=== PATIENT | female | born 1965 | race African-American/Black ===

== ENCOUNTER 2017-09-15 20:49 | Emergency (ER) | payer OTHER ==
[~2017-09-15] VITALS: Ht 167.6 cm; Wt 81.6 kg
[2017-09-15 20:50] VITALS: BP 158/113
--- NOTE | 2017-09-15 21:27 | NUR ---
TO ER BED 3
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
--- NOTE | 2017-09-15 22:00 | NUR ---
VSS. SR ON . PT RESTING WITHOUT ANY DISTRESS. WILL CONTINUE TO MONITOR.
--- NOTE | 2017-09-15 22:40 | NUR ---
DR. MILNER EVALUATING PT.
[2017-09-15 22:45] VITALS: BP 160/107
--- NOTE | 2017-09-15 22:45 | NUR ---
Patient discharged with v/s stable. Written and verbal after care instructions given and explained. Patient verbalized understanding. Ambulatory with steady gait. All questions addressed prior to discharge. Advised to follow up with PMD.
== END 2017-09-15 22:45 | disposition home or self-care (01) ==
LOC: MED 20:49
DX: R07.89 Other chest pain (principal)
CPT/HCPCS: 81002; 81025; 93005; 99283

== ENCOUNTER 2019-05-27 02:07 | Inpatient (IN) | payer MEDICAID, OTHER ==
[~2019-05-27] VITALS: Ht 170.2 cm; Wt 85.7 kg
[2019-05-27 02:27] VITALS: BP 192/124
--- NOTE | 2019-05-27 02:45 | NUR ---
54 YEAR OLD FEMALE COMPLAINS OF 10/10 ABDOMINAL PAIN X 6 HOURS. PATIENT STATES THAT THE PAIN STARTED AFTER SHE HAD [place] LOC[facility]. PATIENT STATES NAUSEA AND VOMITTING. BOWEL SOUNDS ACTIVE X4, TENDER. BP 206/117, HR 89, SPO2 98%, RR 18. PATIENT DENIES DIZZINESS, CHEST PAIN, HEADACHES. PATIENT ALERT AND ORIENTED, BREATHING EVEN AND UNLABORED, SKIN WARM AND DRY. BED IN LOWEST POSITION, LOCKED, BED RAIL UPX1. PMH - DENIES MEDICATIONS - NONE ALLERGIES - NONE
--- NOTE | 2019-05-27 02:52 | NUR ---
DR BHAKTA AWARE OF VITAL SIGNS
--- NOTE | 2019-05-27 03:27 | NUR ---
DR BHAKTA AT BEDSIDE
[2019-05-27] MEDS ORDERED: DICYCLOMINE HCL LIQUID 20 MG, ALUMINUM HYD/MAG/SIMETHICONE 30 ML, LIDOCAINE VISCOUS 2% ... PO ONE ×3 (03:30)
[2019-05-27] MEDS ORDERED: ONDANSETRON 4 MG ODT PO ONE (03:30)
[2019-05-27] MEDS ORDERED: MORPHINE SULFATE 4 MG/ML SYR IM ONE (03:30)
[2019-05-27] MEDS ORDERED: LIDOCAINE VISCOUS 2% 20 ML UDC ONE (03:34)
[2019-05-27] MEDS ORDERED: ALUMINUM HYD/MAG/SIMETHICONE 30 ML UDC ONE (03:35)
[2019-05-27] MEDS ORDERED: DICYCLOMINE HCL LIQUID 10 MG/5 ML UDC ONE (03:35)
--- NOTE | 2019-05-27 04:38 | NUR ---
PATIENT ALERT AND ORIENTED, BREATHING EVEN AND UNLABORED
--- NOTE | 2019-05-27 04:38 | NUR ---
PATIENT O2 SATURATION DROPPED TO 88%, PLACED ON 2L NC
--- NOTE | 2019-05-27 04:39 | NUR ---
O2 SATURATION NOW 98%
[2019-05-27 04:43] LABS: BASOPHILS # (AUTO) 0.1 K/uL (0.00-0.22); MEAN CORPUSCULAR HGB CONC 33 g/dL (33-37); MONOCYTES # (AUTO) 0.3 K/uL (0.8-1.0); RED BLOOD CELL COUNT(AUTO) 4.04 MIL/uL (4.20-5.40); WHITE BLOOD COUNT (AUTO) 12.5 K/uL (4.8-10.8)
[2019-05-27 04:54] LABS: BASOPHILS % (AUTO) 0.4 % (0.0-2.0); EOSINOPHILS % (AUTO) 0.1 % (0.0-4.0); HEMATOCRIT 41.9 % (36-48); LYMPHOCYTES # (AUTO) 0.9 K/uL (2.5-16.5); MEAN CORPUSCULAR HEMOGLOBIN 35 pg (27-31); MEAN CORPUSCULAR VOLUME 103.7 fL (80-94); MONOCYTES % (AUTO) 2.6 % (1.7-9.3); NEUTROPHILS # (AUTO) 11.2 K/uL (1.8-7.7); NEUTROPHILS % (AUTO) 89.5 % (42.2-75.2); PLATELET COUNT (AUTO) 297 K/uL (140-450)
--- NOTE | 2019-05-27 05:02 | NUR ---
DR BHAKTA AWARE OF BLOOD PRESSURE
--- NOTE | 2019-05-27 05:30 | NUR ---
PATIENT ALERT AND ORIENTED, BREATHING EVEN AND UNLABORED
--- NOTE | 2019-05-27 06:07 | NUR ---
BP 184/117, DR BHAKTA AWARE
[2019-05-27 06:14] LABS: ANION GAP 17.8 (8-16); CARBON DIOXIDE 22.7 mmol/L (21-32); CREATININE 0.8 mg/dL (0.6-1.3); POTASSIUM 3.5 mmol/L (3.5-5.1); TOTAL BILIRUBIN 0.7 mg/dL (0.0-1.0)
--- NOTE | 2019-05-27 06:33 | NUR ---
PATIENT ALERT AND ORIENTED, BREATHING EVEN AND UNLABORED
[2019-05-27 06:43] LABS: LYMPHOCYTES % (AUTO) 7.4 % (20.5-51.1)
[2019-05-27 06:51] LABS: BENZODIAZEPINE, URINE NEG. ng/mL (NEG <=200); CANNABINOID, URINE NEG. ng/mL (NEG <=50); COCAINE, URINE NEG. ng/mL (NEG <=300); OPIATE, URINE POS. ng/mL (NEG <=2000); PHENCYCLIDINE SCREEN,URINE NEG. ng/mL (NEG <=25)
[2019-05-27 07:00] LABS: BARBITURATE, URINE NEG. ng/ml (NEG <=200)
--- NOTE | 2019-05-27 07:11 | NUR ---
PT RETURN FROM CT
--- NOTE | 2019-05-27 07:45 | NUR ---
pt awake alert laying on right side ---she is aware we are waiting for ct read offered pt water , pt declined at this time but thank me
[2019-05-27] MEDS ORDERED: PIPERACILLIN/TAZOBACTAM 3.375 GM in DEXTROSE 5% 50 ML IV ONE (08:25)
[2019-05-27] MEDS ORDERED: NACL 0.9% 1,000 ML IV SCH (08:38)
[2019-05-27] MEDS ORDERED: ONDANSETRON 4 MG/2 ML VIAL IM/IVP PRN (08:40)
[2019-05-27] MEDS ORDERED: ACETAMINOPHEN 325 MG TAB PO PRN (08:40)
[2019-05-27] MEDS ORDERED: HYDROcodone/APAP 7.5/325 MG 1 TAB PO PRN (08:40)
--- NOTE | 2019-05-27 08:40 | NUR ---
megan from lab notified of new order for urine by lab and type and screen stat entered
[2019-05-27] MEDS ORDERED: PIPERACILLIN/TAZOBACTAM 3.375 GM VIAL IV ONE (09:02)
--- NOTE | 2019-05-27 09:30 | NUR ---
RECEIVED PT FROM ED NURSE JAVIER. PT RESTING IN BED. ABLE TO MAKE NEEDS KNOWN. SKIN WARM AND DRY TO TOUCH. RESPIRATIONS EVEN AND UNLABORED WITH NO SOB OR RESPIRATORY DISTRESS. PT ASSISTED INTO BED WITHOUT COMPLICATIONS. PT CHANGED INTO BLUE GOWN AND NONSLIP SOCKS. ID BAND APPLIED. IV SITE IN LEFT WRITES 20G IS CLEAN, DRY, AND INTACT. MRSA SWAB PERFORMED AND SENT TO LAB. VITAL SIGNS UPON ADMISSION: 147/95 BP, 115HR, 97% SPO2 ON RA, 97.8 T, AND 18 RR. SAFETY MEASURES IN PLACE. WILL CONTINUE TO MONITOR
--- NOTE | 2019-05-27 09:42 | NUR ---
Pt transferred to Tele via [email or web address] report given to jenny ruano--
[2019-05-27 11:03] VITALS: BP 147/95
[2019-05-27] MEDS: LACTOBACILLUS RHAMNOSUS GG 1 EACH CAP PO SCH (11:05)
[2019-05-27] MEDS: MORPHINE SULFATE 2 MG/ML SYR IVP PRN ×2 (11:07→23:17)
--- NOTE | 2019-05-27 11:07 | NUR ---
PT CALLED AND COMPLAINED OF SEVERE PAIN. PRN PAIN MEDICATION ADMINISTERED PRESCRIBED PER MD ORDER. PT TOLERATED WELL. MEDICATION EDUCATION PERFORMED. PT VERBALIZED UNDERSTANDING. SAFETY MEASURES IN PLACE. WILL CONTINUE TO MONITOR.
[2019-05-27 11:21] LABS: APPEARANCE,URINE HAZY (CLEAR); BILIRUBIN,URINE NEGATIVE (NEGATIVE); BLOOD, URINE TRACE-I (NEGATIVE); COLOR,URINE YELLOW (YELLOW); LEUKOCYTE ESTERASE ,URINE 3+ (NEGATIVE); NITRITE, URINE POSITIVE (NEGATIVE); PH,URINE 6.5 (5.0-9.0); UGLUCOSE NEGATIVE (NEGATIVE)
[2019-05-27 11:33] LABS: RBC,URINE 0-5 /HPF (0-5); WBC,URINE 20-60 /HPF (0-5)
[2019-05-27 11:37] LABS: PROTHROMBIN TIME 9.8 secs (10.8-13.4)
[2019-05-27 12:00] VITALS: BP 143/95
[2019-05-27] MEDS: PIPERACILLIN/TAZOBACTAM 3.375 GM in DEXTROSE 5% 50 ML IV SCH ×2 (12:34→20:44)
--- NOTE | 2019-05-27 12:44 | NUR ---
ADMINISTERED SCHEDULE MED PRESCRIBED PER MD ORDER. PT TOLERATED WELL. MEDICATION EDUCATION PERFORMED. PT VERBALIZED UNDERSTANDING. SAFETY MEASURES IN PLACE. WILL CONTINUE TO MONITOR.
--- NOTE | 2019-05-27 14:15 | NUR ---
PT RESTING IN BED WITH FAMILY AT BEDSIDE. ABLE TO MAKE NEEDS KNOWN. RESPIRATIONS EVEN AND UNLABORED WITH NO SOB OR RESPIRATORY DISTRESS. SKIN WARM AND DRY TO TOUCH. SAFETY MEASURES IN PLACE. WILL CONTINUE TO MONITOR.
[2019-05-27 16:00] VITALS: BP 128/64
--- NOTE | 2019-05-27 16:30 | NUR ---
PT RESTING IN BED. ABLE TO MAKE NEEDS KNOWN. RESPIRATIONS EVEN AND UNLABORED WITH NO SOB OR RESPIRATORY DISTRESS. SKIN WARM AND DRY TO TOUCH. SAFETY MEASURES IN PLACE. WILL CONTINUE TO MONITOR
--- NOTE | 2019-05-27 18:15 | NUR ---
PT ASLEEP IN BED. RESPONSIVE TO VERBAL AND TACTILE STIMULI. ABLE TO MAKE NEEDS KNOWN. RESPIRATIONS EVEN AND UNLABORED WITH NO SOB OR RESPIRATORY DISTRESS. SKIN WARM AND DRY TO TOUCH. SAFETY MEASURES IN PLACE. WILL CONTINUE TO MONITOR
--- NOTE | 2019-05-27 19:11 | NUR ---
REPORT RECEIVED FROM ED NURSE AT BEDSIDE. PT IN STABLE CONDITION. AAOX4. INTRODUCED SELF TO PT. BOARD UPDATED. PT HAS NO COMPLAINTS OF PAIN. NO SOB. AFEBRILE. PT IS AMBULATORY. IV SITE L WRIST 20G RUNNING NS@60ML/HR PATENT AND INTACT. SKIN WARM, DRY, AND INTACT WITH NO OPEN WOUNDS. BED LOCKED IN LOW POSITION. CALL ZEPEDA WITHIN REACH. SAFETY PRECAUTION IN PLACE. ALL NEEDS MET AT THIS TIME.
[2019-05-27 20:00] VITALS: BP 153/104
[2019-05-27] MEDS: METOPROLOL 50 MG TAB PO SCH (20:44)
--- NOTE | 2019-05-27 20:44 | NUR ---
LOPRESSOR GIVEN PO. ZOSYN HUNG AND RUNNING. PT TOLERATING WELL.
[2019-05-27] MEDS ORDERED: NEOSTIGMINE 1:1000 10 MG/10 ML VIAL ONE (20:53)
[2019-05-27] MEDS ORDERED: LIDOCAINE 2% 100 MG/5 ML SYR IVP ONE (20:53)
[2019-05-27] MEDS ORDERED: SEVOFLURANE 250 ML BTL INH ONE (20:53)
[2019-05-27] MEDS ORDERED: SUCCINYLCHOLINE CHLORIDE 200 MG/10 ML VIAL IVP ONE (20:53)
[2019-05-27] MEDS ORDERED: PROPOFOL 200 MG/20 ML VIAL IV ONE (20:53)
[2019-05-27] MEDS ORDERED: KETOROLAC 30 MG/ML VIAL ONE (20:53)
[2019-05-27] MEDS ORDERED: ROCURONIUM 50 MG/5 ML VIAL IV ONE (20:53)
[2019-05-27] MEDS ORDERED: DEXAMETHASONE 4 MG/ML VIAL ONE (20:53)
[2019-05-27] MEDS ORDERED: ONDANSETRON 4 MG/2 ML VIAL ONE (20:53)
[2019-05-27] MEDS ORDERED: GLYCOPYRROLATE 0.2 MG/ML VIAL ONE (20:53)
--- NOTE | 2019-05-27 21:00 | NUR ---
PT TAKEN TO OR FOR LAP APPENDECTOMY.
[2019-05-27] MEDS ORDERED: BUPIVACAINE-MPF/EPI 0.25% 30 ML VIAL INJ ONE (21:02)
[2019-05-27 21:10] LABS: MAGNESIUM 1.5 mg/dL (1.8-2.4)
[2019-05-27 21:35] LABS: FREE T4 (FREE THYROXINE) 0.92 ng/dL (0.76-1.46); PHOSPHORUS 4.5 mg/dL (2.5-4.9); THYROID STIMULATING HORMONE 3.66 uIU/mL (0.34-3.74)
[2019-05-27] MEDS ORDERED: ONDANSETRON 4 MG/2 ML VIAL IVP PRN (21:40)
[2019-05-27] MEDS: HYDROmorphone 1 MG/ML AMP IVP PRN ×4 (22:15→22:45)
[2019-05-27] MEDS ORDERED: HYDROmorphone PFS 2 MG/ML SYR ONE (22:17)
[2019-05-27] MEDS ORDERED: LABETALOL 100 MG/20 ML VIAL IVP PRN (22:25)
[2019-05-27] MEDS ORDERED: LABETALOL 100 MG/20 ML VIAL ONE (22:26)
--- NOTE | 2019-05-27 22:45 | NUR ---
PT RETURNED FROM OR AFTER LAP APPENDECTOMY.
--- NOTE | 2019-05-27 23:17 | NUR ---
MORPHINE GIVEN FOR 10/10 ABDOMINAL PAIN. PT TOLERATED WELL.
[2019-05-27] MEDS: DEXT 5% / NACL 0.45% 1,000 ML IV SCH (23:30)
[2019-05-28] VITALS: BP 111/70
--- NOTE | 2019-05-28 01:45 | NUR ---
PT SLEEPING COMFORTABLY BUT AROUSABLE. NO S/S OF DISTRESS NOTED. WILL CONTINUE TO MONITOR.
[2019-05-28 04:00] VITALS: BP 118/85
[2019-05-28] MEDS: MORPHINE SULFATE 2 MG/ML SYR IVP PRN ×5 (04:27→20:51)
[2019-05-28] MEDS: PIPERACILLIN/TAZOBACTAM 3.375 GM in DEXTROSE 5% 50 ML IV SCH ×3 (04:27→20:44)
--- NOTE | 2019-05-28 04:27 | NUR ---
LUCY VENEGAS AND GABY. PT TOLERATING WELL. Addendum: 05/28/19 at 0531 by Hong Javier RN MORPHINE GIVEN FOR 01/28 ABDOMINAL PAIN. PT TOLERATED WELL.
--- NOTE | 2019-05-28 05:30 | NUR ---
PT SLEEPING COMFORTABLY BUT AROUSABLE. NO S/S OF DISTRESS NOTED. NO COMPLAINTS OF PAIN. NO SOB. AFEBRILE. WILL CONTINUE TO MONITOR.
--- NOTE | 2019-05-28 06:50 | NUR ---
PT SLEEPING COMFORTABLY BUT AROUSABLE. PT IN STABLE CONDITION.
--- NOTE | 2019-05-28 07:10 | NUR ---
RECEIVED BEDSIDE REPORT FROM NIGHTSHIFT NURSE. PT RESTING IN BED UPON ARRIVAL. ABLE TO MAKE NEEDS KNOWN. RESPIRATIONS EVEN AND UNLABORED WITH NO SOB OR RESPIRATORY DISTRESS. SKIN WARM AND DRY TO TOUCH. SAFETY MEASURES IN PLACE. WILL CONTINUE TO MONITOR
[2019-05-28 07:35] LABS: BASOPHILS % (AUTO) 0.1 % (0.0-2.0); HEMATOCRIT 35.8 % (36-48); HEMOGLOBIN 11.8 g/dL (12.0-16.0); LYMPHOCYTES # (AUTO) 0.5 K/uL (2.5-16.5); LYMPHOCYTES % (AUTO) 5.5 % (20.5-51.1); MEAN CORPUSCULAR HEMOGLOBIN 35 pg (27-31); MEAN CORPUSCULAR HGB CONC 33 g/dL (33-37); MEAN CORPUSCULAR VOLUME 105.3 fL (80-94); MONOCYTES # (AUTO) 0.3 K/uL (0.8-1.0); MONOCYTES % (AUTO) 2.9 % (1.7-9.3); NEUTROPHILS # (AUTO) 9.1 K/uL (1.8-7.7); NEUTROPHILS % (AUTO) 91.5 % (42.2-75.2); PLATELET COUNT (AUTO) 240 K/uL (140-450); RED CELL DISTRIBUTION WIDTH 13.1 % (11.6-13.7); WHITE BLOOD COUNT (AUTO) 9.9 K/uL (4.8-10.8)
[2019-05-28 08:00] VITALS: BP 138/92
[2019-05-28] MEDS ORDERED: MAG SULF 2000 MG/WATER PREMIX 50 ML IV ONE (08:00)
--- NOTE | 2019-05-28 08:01 | NUR ---
ADMINISTERED MED PRESCRIBED PER MD ORDER. PT TOLERATED WELL. MEDICATION EDUCATION PERFORMED. PT VERBALIZED UNDERSTANDING. SAFETY MEASURES IN PLACE.
--- NOTE | 2019-05-28 08:15 | NUR ---
PATIENT HAS BEEN SCREENED AND CATEGORIZED HIGH NUTRITION RISK. PATIENT WILL BE SEEN WITHIN 1-2 DAYS OF ADMISSION. 05/28/[address]
[2019-05-28 08:57] LABS: ANION GAP 13.5 (8-16); CARBON DIOXIDE 27.7 mmol/L (21-32); CREATININE 1.1 mg/dL (0.6-1.3); POTASSIUM 4.2 mmol/L (3.5-5.1)
[2019-05-28] MEDS: METOPROLOL 50 MG TAB PO SCH ×2 (09:21→21:00)
[2019-05-28] MEDS: LACTOBACILLUS RHAMNOSUS GG 1 EACH CAP PO SCH (09:21)
[2019-05-28] MEDS: DEXT 5% / NACL 0.45% 1,000 ML IV SCH (09:22)
--- NOTE | 2019-05-28 09:22 | NUR ---
ADMINISTERED MEDICATION PRESCRIBED PER MD ORDER. PT ALSO COMPLAINED OF SEVERE PAIN. PRN PAIN MEDICATION ADMINISTERED PRESCRIBED PER MD ORDER. PT TOLERATED WELL. MEDIATION EDUCATION PERFORMED. PT VERBALIZED UNDERSTANDING. SAFETY MEASURES IN PLACE. WILL CONTINUE TO MONITOR
[2019-05-28] MEDS ORDERED: MULTIVITAMIN 1 TAB PO SCH (10:00)
--- NOTE | 2019-05-28 10:07 | NUR ---
ADMINISTERED MEDICATION PRESCRIBED PER MD ORDER. PT TOLERATED WELL. MEDICATION EDUCATION PREFORMED. PT VERBALIZED UNDERSTANDING. SAFETY MEASURES IN PLACE
[2019-05-28 10:29] LABS: CHOL/HDL RATIO 1.8 (1-4.5)
--- NOTE | 2019-05-28 10:50 | NUR ---
ABDOMINAL S/P LAPRA SCOPIC SURGICAL WOUND, DERMA DOWNS IN PLACE, 3 INCISION SITES DRY AND CLEAN,NO S/S OF INFECTION ISLAND DRESSING APPLIED, PT. AND PRIMARY RN NOTIFIED TO KEEP AREA DRY AND CLEAN. PT. AAX4 AND VERBALIZES UNDERSTANDING.
--- NOTE | 2019-05-28 11:00 | NUR ---
PT RESTING IN BED WITH FAMILY AT BEDSIDE. ABLE TO MAKE NEEDS KNOWN. RESPIRATIONS EVEN AND UNLABORED WITH NO SOB OR RESPIRATORY DISTRESS. SKIN WARM AND DRY TO TOUCH. IV SITE IN LEFT WRIST 20G IS CLEAN, DRY, AND INTACT. SAFETY MEASURES IN PLACE. WILL CONTINUE TO MONITOR.
[2019-05-28 12:00] VITALS: BP 106/73
--- NOTE | 2019-05-28 12:22 | NUR ---
HOURLY ROUNDING. PT RESTING IN BED. ABLE TO MAKE NEEDS KNOWN. RESPIRATIONS EVEN AND UNLABORED WITH NO SOB OR RESPIRATORY DISTRESS. SKIN WARM AND DRY TO TOUCH. SAFETY MEASURES IN PLACE. WILL CONTINUE TO MONITOR.
--- NOTE | 2019-05-28 13:09 | NUR ---
ADMINISTERED SCHEDULE MED PRESCRIBED PER MD ORDER. PT TOLERATED WELL. PT CALLED AND COMPLAINED OF SEVERE PAIN. PRN PAIN MEDICATION ADMINISTERED PRESCRIBED PER MD ORDER. MEDICATION EDUCATION PERFORMED. PT VERBALIZED UNDERSTANDING. SAFETY MEASURES IN PLACE. WILL CONTINUE TO MONITOR.
--- NOTE | 2019-05-28 14:05 | NUR ---
HOURLY ROUNDING. PT ASLEEP IN BED. RESPONSIVE TO VERBAL AND TACTILE STIMULI. RESPIRATIONS EVEN AND UNLABORED WITH NO SOB OR RESPIRATORY DISTRESS. SKIN WARM AND DRY TO TOUCH. SAFETY MEASURES IN PLACE. WILL CONTINUE TO MONITOR.
--- NOTE | 2019-05-28 14:08 | NUR ---
Data Integrity Consultant Note: Basic Screen: Yes High Risk DC Screen [place]: ARISTEO MURPHY Home Relationship: MOTHER Pre-Admission Living Arrangements: Lives with Other Prior ADL Independent Current Home Health Name/Tel: N/A Current DME/02 Name/Tel: N/A Current Hospice Name/Tel: N/A Current Dialysis Name/Tel: N/A Healthcare Decision Maker: Patient Advance Directive No - REFUSED Physician Orders for Life Sustaining Treatment Form No Patient/Family Have Educational Needs No Information Taught: Advance Directive Person Taught: Patient Teaching Tools: Verbal Factors Affecting Learning: None Participation Level: Refused Evaluation: Verbalizes Understanding Needs Additional Education: No Discipline: Case Mgt/Social Svcs Tentative Discharge Plan/Destination: No Needs Identified Will require assistance post discharge: No Referred to Fish Worm Grower: No Tentative Discharge Plan Summary: Patient is a 54-year-old female admitted for acute appendicitis. Patient has PMHX of hypertension. Patient was admitted from home. SW met with patient at bedside to verify demographics. Patient provided a different address than on face sheet. Patient now resides at: [address] [place] [address] [address] [place] [address]. Patient stated she lives with her son. Patient also provided different contact information for emergency contact: Aristeo Murphy [phone]. Patient reports no history of mental health and no history of substance abuse. Patient's tentative plan after discharge is to return home. No further needs identified. Signature: JODIE Vital Date: May 28, 2019 Time: 14:07
--- NOTE | 2019-05-28 15:31 | NUR ---
05/28/19 RD INITIAL ASSESSMENT COMPLETED PLEASE REFER TO NUTRITION ASSESSMENT UNDER CARE ACTIVITY FOR ESTIMATED NUTRITIONAL NEEDS. 1. CONTINUE CLEAR LIQUID DIET TOLERATED 2. IF/WHEN PATIENT IS MEDICALLY STABLE CONSIDER ADVANCING DIET TO 2GM NA. 3. CONTINUE MVI/VIT C FOR WOUND HEALING 4. RD TO FOLLOW-UP 3-5 DAYS, MODERATE RISK TANMAY WHITTAKER RD
[2019-05-28 16:00] VITALS: BP 103/70
--- NOTE | 2019-05-28 17:55 | NUR ---
PT CALLED AND COMPLAINED OF PAIN. PRN PAIN MEDICATION ADMINISTERED PRESCRIBED PER MD ORDER. SAFETY MEASURES IN PLACE.
--- NOTE | 2019-05-28 19:20 | NUR ---
ENDORSED TO NIGHTSHIFT NURSE. PT RESTING IN BED. ABLE TO MAKE NEEDS KNOWN. RESPIRATIONS EVEN AND UNLABORED WITH NO SOB OR RESPIRATORY DISTRESS. SKIN WARM AND DRY TO TOUCH. SAFETY MEASURES IN PLACE. PT IS STABLE.
--- NOTE | 2019-05-28 19:21 | NUR ---
REPORT RECEIVED FROM AM NURSE AT BEDSIDE. PT IN STABLE CONDITION. AAOX4. INTRODUCED SELF TO PT. BOARD UPDATED. NO COMPLAINTS OF PAIN. NO SOB. AFEBRILE. PT IS AMBULATORY. IV SITE L WRIST 20G RUNNING D5 1/2NS@70ML/HR PATENT AND INTACT. SKIN WARM, DRY, AND NOT INTACT DUE TO LAPAROSCOPIC WOUNDS IN THE ABDOMEN DUE TO S/P APPENDECTOMY. BED LOCKED IN LOW POSITION. CALL ZEPEDA WITHIN REACH. SAFETY PRECAUTION IN PLACE. ALL NEEDS MET AT THIS TIME.
--- NOTE | 2019-05-28 20:51 | NUR ---
LUCY VENEGAS AND GABY. MORPHINE GIVEN FOR 12/28 ABDOMINAL PAIN. PT TOLERATED WELL. Addendum: 05/29/19 at 0230 by Hong Javier RN LOPRESSOR HELD DUE TO DECREASED BP.
--- NOTE | 2019-05-28 21:55 | NUR ---
PT IN BED WATCHING TV. NO S/S OF DISTRESS NOTED. WILL CONTINUE TO MONITOR.
[2019-05-29] VITALS: BP 110/76
[2019-05-29] MEDS: MORPHINE SULFATE 2 MG/ML SYR IVP PRN ×3 (00:34→22:23)
--- NOTE | 2019-05-29 00:34 | NUR ---
MORPHINE GIVEN FOR 8/10 SURGICAL SITE PAIN. PT TOLERATED WELL.
--- NOTE | 2019-05-29 02:25 | NUR ---
PT SLEEPING COMFORTABLY BUT AROUSABLE. NO S/S OF DISTRESS NOTED. RESPIRATIONS EVEN, UNLABORED, AND WNL. WILL CONTINUE TO MONITOR.
[2019-05-29] MEDS: DEXT 5% / NACL 0.45% 1,000 ML IV SCH ×2 (03:50→13:30)
[2019-05-29] MEDS: PIPERACILLIN/TAZOBACTAM 3.375 GM in DEXTROSE 5% 50 ML IV SCH ×3 (04:08→21:15)
--- NOTE | 2019-05-29 04:08 | NUR ---
LUCY HUNG AND RUNNING. PT TOLERATING WELL.
--- NOTE | 2019-05-29 04:22 | NUR ---
MORPHINE GIVEN FOR 9/10 SURGICAL SITE PAIN. PT TOLERATED WELL.
[2019-05-29 06:14] LABS: BASOPHILS % (AUTO) 0.4 % (0.0-2.0); EOSINOPHILS % (AUTO) 0.2 % (0.0-4.0); HEMATOCRIT 34.1 % (36-48); HEMOGLOBIN 11.2 g/dL (12.0-16.0); LYMPHOCYTES % (AUTO) 23.4 % (20.5-51.1); MEAN CORPUSCULAR HEMOGLOBIN 35 pg (27-31); MEAN CORPUSCULAR HGB CONC 33 g/dL (33-37); MEAN CORPUSCULAR VOLUME 105.7 fL (80-94); MONOCYTES # (AUTO) 0.8 K/uL (0.8-1.0); MONOCYTES % (AUTO) 9.1 % (1.7-9.3); NEUTROPHILS # (AUTO) 5.8 K/uL (1.8-7.7); NEUTROPHILS % (AUTO) 66.9 % (42.2-75.2); PLATELET COUNT (AUTO) 234 K/uL (140-450); RED BLOOD CELL COUNT(AUTO) 3.23 MIL/uL (4.20-5.40); RED CELL DISTRIBUTION WIDTH 13.2 % (11.6-13.7); WHITE BLOOD COUNT (AUTO) 8.7 K/uL (4.8-10.8)
--- NOTE | 2019-05-29 06:30 | NUR ---
PT AWAKE AND ALERT WATCHING TV. PT IN STABLE CONDITION.
[2019-05-29 06:56] LABS: ANION GAP 10.6 (8-16); CARBON DIOXIDE 27.5 mmol/L (21-32); CREATININE 1.1 mg/dL (0.6-1.3); POTASSIUM 3.1 mmol/L (3.5-5.1)
[2019-05-29 07:15] LABS: MAGNESIUM 1.7 mg/dL (1.8-2.4); PHOSPHORUS 3.6 mg/dL (2.5-4.9)
--- NOTE | 2019-05-29 07:24 | NUR ---
REPORT RECEIVED FROM STATISTICAL REPORTING ANALYST NURSE FOR CONTINUITY OF CARE. PATIENT IS RESTING IN BED, SLEEPING, OBSERVED CHEST RISE AND FALL. WILL CONTINUE TO MONITOR.
[2019-05-29 08:00] VITALS: BP 86/50
[2019-05-29] MEDS: LACTOBACILLUS RHAMNOSUS GG 1 EACH CAP PO SCH (08:48)
[2019-05-29] MEDS: METOPROLOL 50 MG TAB PO SCH ×2 (08:49→21:00)
[2019-05-29] MEDS: POTASSIUM CHLORIDE 10 MEQ TABER PO SCH ×2 (08:50→21:15)
[2019-05-29] MEDS ORDERED: MORPHINE SULFATE 2 MG/ML SYR IVP SCH (09:00)
[2019-05-29] MEDS ORDERED: KETOROLAC 15 MG/ML VIAL IVP SCH (09:00)
[2019-05-29] MEDS ORDERED: MAG SULF 2000 MG/WATER PREMIX 50 ML IV SCH (09:00)
[2019-05-29] MEDS: MULTIVITAMIN 1 TAB PO SCH (09:08)
--- NOTE | 2019-05-29 10:00 | NUR ---
PATIENT IS RESTING IN BED, PATIENT REPORTS PAIN ON LEFT ABDOMINAL SURGICAL SCAR, PAIN MEDICATIONS GIVEN, TOLERATED WELL. BED IN LOW POSITION, CALL LIGHT ON AND WITHIN REACH. WILL CONTINUE TO MONITOR.
--- NOTE | 2019-05-29 12:30 | NUR ---
PATIENT IS RESTING IN BED, CALL LIGHT ON AND WITHIN REACH, BED IN LOW POSITION, WILL CONTINUE TO MONITOR.
--- NOTE | 2019-05-29 14:31 | NUR ---
DC PLANNIN YRS OLD FEMALE PATIENT WAS ADMITTED FROM HOME WITH A DX OF ACUTE APPENDICITIS. PT HAS A HX OF HTN . CT ABD/PELVIS SHOWED MILD APPENDICITIS. ADMINISTERED ZOSYN IV ABX . CONSULTED WITH DR SOTO AND PERFORMED LAP APPY DC HOME WHEN CATARINA Taylor AND FOLLOW UP WITH DR SOTO WITH IN ONE WEEK CM TO FOLLOW. Addendum: 05/30/19 at 1220 by Dior Harrison DC PLANNING: PT STABLE TO BE DISCHARGE , FOLLOW UP WITH DR SOTO SURGEON AT HIS OFFICE WITH IN 3 DAYS . PT INSTRUCTED TO CALL DR SOTO'S OFFICE BY PRIMARY NURSE [place].
[2019-05-29 16:00] VITALS: BP 105/73
--- NOTE | 2019-05-29 19:15 | NUR ---
RECEIVED PT IN STABLE CONDITION FROM AM NURSE. AWAKE,ALERT AND ORIENTED X4. MED SURG PT. AMBULATORY. WITH NO C/O ANY DISCOMFORT NOR PAIN AT THIS TIME. ABDOMEN INCISIONS OPEN TO AIR. IVF INFUSING WEL ON THE FA G#20. CLEAR AND PATENT. PLAN OF CARE DISCUSSED AND VERBALIZED UNDERSTANDING. BED ON LOW POSITION. SIDE RAILS UP X2. CALL LIGHT PLACED WITHIN EASY REACH. WILL CONTINUE TO MONITOR.
--- NOTE | 2019-05-29 19:25 | NUR ---
PATIENT REPORT GIVEN TO BACK TENDER FOURDRINIER NURSE FOR CONTINUATION OF CARE.
[2019-05-29 21:00] VITALS: BP 125/88
--- NOTE | 2019-05-29 21:00 | NUR ---
PT REFUSED TO TAKE LOPRESSOR PO DUE TONIGHT DUE TO BP GETTING LOW.
--- NOTE | 2019-05-29 21:50 | NUR ---
PT CONCERN ABOUT PAIN MEDICATION WAS ADDRESSED TO DR. SINGER,RESIDENT. HE WAS MADE AWARE THAT PT WANTS TO GET BOTH MORPHINE AND TORADOL BOTH AT THE SAME TIME FOR SEVERE PAIN FOR MORPHINE DOESN'T HELP HER . DR. SINGER ,RESIDENT MD SAID OK TO GIVE BOTH PAIN MED FOR SEVERE PAIN.
[2019-05-29] MEDS: KETOROLAC 15 MG/ML VIAL IVP PRN (22:26)
--- NOTE | 2019-05-29 23:30 | NUR ---
PT IS AWAKE. SHE SAID PAIN IS 6/10 ATT THIS TIME. BUT IT GOES DOWN TO 2/10 AFTER A WHILE.
[2019-05-30 00:45] VITALS: BP 123/79
--- NOTE | 2019-05-30 01:00 | NUR ---
UP TO THE BATHROOM . VOIDED. NO C/O PAIN AT THIS TIME.
[2019-05-30] MEDS: DEXT 5% / NACL 0.45% 1,000 ML IV SCH ×2 (02:31→03:48)
[2019-05-30] MEDS: MORPHINE SULFATE 2 MG/ML SYR IVP PRN ×2 (04:06→10:03)
[2019-05-30] MEDS: KETOROLAC 15 MG/ML VIAL IVP PRN ×2 (04:09→10:02)
[2019-05-30] MEDS: PIPERACILLIN/TAZOBACTAM 3.375 GM in DEXTROSE 5% 50 ML IV SCH ×2 (05:00→12:48)
--- NOTE | 2019-05-30 05:00 | NUR ---
PT ASLEEP. NO S/S OF ANY DISCOMFORT NOR MPAIN NOTED.
[2019-05-30 06:02] LABS: BASOPHILS % (AUTO) 0.4 % (0.0-2.0); EOSINOPHILS # (AUTO) 0.1 K/uL (0-0.4); HEMATOCRIT 30.2 % (36-48); LYMPHOCYTES % (AUTO) 23.8 % (20.5-51.1); MEAN CORPUSCULAR HEMOGLOBIN 35 pg (27-31); MEAN CORPUSCULAR HGB CONC 33 g/dL (33-37); MEAN CORPUSCULAR VOLUME 106.2 fL (80-94); MONOCYTES # (AUTO) 0.7 K/uL (0.8-1.0); MONOCYTES % (AUTO) 8.9 % (1.7-9.3); NEUTROPHILS # (AUTO) 5.5 K/uL (1.8-7.7); NEUTROPHILS % (AUTO) 65.9 % (42.2-75.2); PLATELET COUNT (AUTO) 205 K/uL (140-450); RED BLOOD CELL COUNT(AUTO) 2.85 MIL/uL (4.20-5.40); RED CELL DISTRIBUTION WIDTH 13.3 % (11.6-13.7); WHITE BLOOD COUNT (AUTO) 8.3 K/uL (4.8-10.8)
[2019-05-30 06:20] LABS: ANION GAP 10.8 (8-16); CREATININE 0.9 mg/dL (0.6-1.3); POTASSIUM 3.8 mmol/L (3.5-5.1)
--- NOTE | 2019-05-30 07:20 | NUR ---
RECEIVED BEDSIDE REPORT FROM ASSET MANAGEMENT COORDINATOR NURSE. PT IS AWAKE AND ALERT, NO S/S OF DISTRESS, NO SOB. PT IS ON ROOM AIR, SKIN INTACT ASIDE FROM THE THREE ABP LAP INCISIONS, SALESFORCE DEVELOPER. NO S/S OF INFECTION NOTED. IV SITE L WRIST 20 G. CALL LIGHT IS WITHIN REACH. WILL CONTINUE TO MONITOR.
[2019-05-30] MEDS ORDERED: HYDR-5122 PO (07:31)
--- NOTE | 2019-05-30 07:44 | NUR ---
WILL ENDORSE PT IN STABLE CONDITION TO MA NURSE.
[2019-05-30 08:00] VITALS: BP 109/68
[2019-05-30] MEDS: METOPROLOL 50 MG TAB PO SCH (09:00)
[2019-05-30] MEDS ORDERED: CIPR500T4 PO (09:09)
[2019-05-30] MEDS ORDERED: METO50TA99 PO (09:09)
[2019-05-30] MEDS: MULTIVITAMIN 1 TAB PO SCH (10:02)
[2019-05-30] MEDS: LACTOBACILLUS RHAMNOSUS GG 1 EACH CAP PO SCH (10:02)
--- NOTE | 2019-05-30 13:17 | NUR ---
PT RESTING COMFORTABLY IN BED, NO S/S OF DISTRESS. IV ZOSYN INFUSING. PT IS READY FOR DC THIS AFTERNOON.
--- NOTE | 2019-05-30 15:21 | NUR ---
PT DISCHARGING AT THIS TIME. IV SITE AND WRIST BANDS WERE REMOVED. PT WAS GIVEN DC INSTRUCTIONS TO WHICH SHE VERBALIZED UNDERSTANDING. PRESCRIPTIONS EXPLAINED. PT LEFT WITH ALL HER BELONGINGS IN STABLE CONDITION, PICKED UP BY HER SON.
== END 2019-05-30 15:25 | disposition home or self-care (01) | DRG 234 ==
LOC: MED 02:07 → MTU 08:38
PROVIDERS: ADMIT General Practice; ATTEND General Practice
PROC: 0DTJ4ZZ Resection of Appendix, Percutaneous Endoscopic Approach (ICD-10-PCS; principal; 2019-05-27 20:30)
DX: K35.80 Unspecified acute appendicitis (principal); R65.10 Systemic inflammatory response syndrome (SIRS) of non-infectious origin without acute organ dysfunction; E87.6 Hypokalemia; I10 Essential (primary) hypertension; N39.0 Urinary tract infection, site not specified; K57.30 Diverticulosis of large intestine without perforation or abscess without bleeding
CPT/HCPCS: 36415; 71045; 80048; 80053; 80305; 81001; 81025; 82374; 83036; 83605; 83690; 83735; 83880; 84100; 84439; 84443; 84484; 85025; 85610; 85730; 86886; 86900; 86901; 87081; 87086; 87186; 88304; 93005; 96372; 99285; J0330; J1100; J1170; J1885; J2001; J2270; J2405; J2543; J2704; J2710; J3475; J3490; J7030; J7060; Q0092; Q0162

== ENCOUNTER 2019-06-04 16:50 | Outpatient (CLI) | payer MEDICAID ==
[~2019-06-04 16:50] MED LIST: CIPR500T4 PO; HYDR-5122 PO; METO50TA99 PO
[2019-06-04 17:53] LABS: BASOPHILS % (AUTO) 0.4 % (0.0-2.0); EOSINOPHILS # (AUTO) 0.2 K/uL (0-0.4); EOSINOPHILS % (AUTO) 2.9 % (0.0-4.0); HEMATOCRIT 34.2 % (36-48); LYMPHOCYTES # (AUTO) 1.6 K/uL (2.5-16.5); LYMPHOCYTES % (AUTO) 19.6 % (20.5-51.1); MEAN CORPUSCULAR HEMOGLOBIN 34 pg (27-31); MEAN CORPUSCULAR HGB CONC 32 g/dL (33-37); MEAN CORPUSCULAR VOLUME 105.6 fL (80-94); MONOCYTES # (AUTO) 0.6 K/uL (0.8-1.0); MONOCYTES % (AUTO) 7.7 % (1.7-9.3); NEUTROPHILS # (AUTO) 5.7 K/uL (1.8-7.7); NEUTROPHILS % (AUTO) 69.4 % (42.2-75.2); PLATELET COUNT (AUTO) 334 K/uL (140-450); RED BLOOD CELL COUNT(AUTO) 3.24 MIL/uL (4.20-5.40); RED CELL DISTRIBUTION WIDTH 13.4 % (11.6-13.7); WHITE BLOOD COUNT (AUTO) 8.3 K/uL (4.8-10.8)
[2019-06-04 18:10] LABS: APPEARANCE,URINE CLEAR (CLEAR); BILIRUBIN,URINE NEGATIVE (NEGATIVE); BLOOD, URINE 2+ (NEGATIVE); COLOR,URINE YELLOW (YELLOW); LEUKOCYTE ESTERASE ,URINE 3+ (NEGATIVE); NITRITE, URINE NEGATIVE (NEGATIVE); PH,URINE 5.5 (5.0-9.0); UGLUCOSE NEGATIVE (NEGATIVE)
[2019-06-04 18:21] LABS: WBC,URINE 60-80 /HPF (0-5)
[2019-06-04 18:52] LABS: ALBUMIN 3.6 g/dL (3.4-5.0); CARBON DIOXIDE 24.7 mmol/L (21-32); TOTAL BILIRUBIN 0.3 mg/dL (0.0-1.0)
[2019-06-04 19:20] LABS: ANION GAP 17.5 (8-16); POTASSIUM 4.2 mmol/L (3.5-5.1)
== END 2019-06-04 20:04 | disposition home or self-care (01) ==
LOC: MLB 16:50
DX: R10.9 Unspecified abdominal pain (principal)
CPT/HCPCS: 36415; 80053; 81001; 83690; 85025; 87086

== ENCOUNTER 2019-06-09 09:21 | Outpatient (CLI) | payer MEDICAID | END 2019-06-09 20:27 | disposition home or self-care (01) | LOC: MCT 09:21 | DX: K57.30 Diverticulosis of large intestine without perforation or abscess without bleeding (principal); R10.9 Unspecified abdominal pain | CPT/HCPCS: 74178; Q9967 ==

== ENCOUNTER 2019-06-11 19:07 | Emergency (ER) | payer MEDICAID ==
[~2019-06-11] VITALS: Ht 167.6 cm; Wt 88.0 kg
[2019-06-11 19:15] VITALS: BP 162/101
--- NOTE | 2019-06-11 19:15 | NUR ---
PT BIBA TAKEN TO BED #4
--- NOTE | 2019-06-11 19:30 | NUR ---
54 Y/O FEMALE BIBA C/O LUQ ABD PAIN X 4 DAYS. RATES PAIN 9/10 AND DESCRIBES IT SHARP AND IS LOCATED ON LUQ. PT RECENTLY HAD A APPENCTOMY AT THIS HOSPITAL AND WAS D/C ON THE AND AFTER D/C BEEN HAVING CONSTANT PAIN. BS WAS 93. DENIES ANY N,V,D, OR FEVER.. NORMAL BM, LAST BM WAS TODAY AT 1000 AM. NO BLOOD IN STOOL. LAST PAIN MED WAS 4HRS AGO. A & O X4. STEADY GAIT. VSS. NKA. PMH: APPENCTOMY, HTN.
[2019-06-11] MEDS ORDERED: KETOROLAC 30 MG/ML VIAL IVP ONE (23:00)
[2019-06-11] MEDS ORDERED: hydrALAZINE 20 MG/ML VIAL IVP ONE (23:00)
--- NOTE | 2019-06-12 00:05 | NUR ---
PT REQUESTING TO RECEIVE TAXI VOUCHER FOR PHARMACY THEN TO HER HOME. PER SHELL SIEVE OPERATOR, PT CANNOT RECEIVE TAXI VOUCHER TO PHARMACY, ONLY HOME. PT MADE AWARE. PER PT, PT WILL JUST PAY FOR TAXI HERSELF, REFUSED TAXI VOUCHER.
[2019-06-12 00:10] VITALS: BP 129/76
== END 2019-06-12 00:10 | disposition home or self-care (01) ==
LOC: MED 19:07
DX: G89.18 Other acute postprocedural pain (principal); R10.9 Unspecified abdominal pain; Z90.49 Acquired absence of other specified parts of digestive tract; Z79.899 Other long term (current) drug therapy
CPT/HCPCS: 81002; 81025; 96374; 96375; 99283; J0360; J1885

== ENCOUNTER 2020-01-27 02:20 | Emergency (ER) | payer MEDICAID ==
[~2020-01-27] VITALS: Ht 170.2 cm; Wt 79.4 kg
--- NOTE | 2020-01-27 02:25 | NUR ---
biba to bed 11
[2020-01-27 02:30] VITALS: BP 138/96
[2020-01-27] MEDS: KETOROLAC 60 MG/2 ML VIAL IM ONE (02:55)
--- NOTE | 2020-01-27 02:56 | NUR ---
55 y/o female BIBA c/o right foot pain x 6 hrs. Pt states she was working out and kicked her bed. Pt rates pain 10/10 , states it has a burning sensation. Pt states she has been unable to ice or elevate her foot because of the pain. + pedal pulses. No redness or swelling noted at injury site. pt resting in bed, locked and in lowest position, hob elevated, side rail x1. VSS. pmh: APPENDECTOMY rema
--- NOTE | 2020-01-27 03:07 | NUR ---
PT REQUESTING TYLENOL FOR PAIN WELL TORADOL IM. JESICA CRISTOBAL MADE AWARE.
--- NOTE | 2020-01-27 03:09 | NUR ---
xray at bedside.
[2020-01-27] MEDS: ACETAMINOPHEN EXTRA STRENGTH 500 MG TAB PO ONE (03:10)
--- NOTE | 2020-01-27 04:11 | NUR ---
pts right 5th and 4th toe budy taped. pts pmsc wnl. pt was also given crutches. showed good use.
[2020-01-27 04:22] VITALS: BP 138/96
--- NOTE | 2020-01-27 04:22 | NUR ---
Patient discharged with v/s stable. Written and verbal after care instructions given and explained. Patient alert, oriented and verbalized understanding of instructions. Ambulatory with steady gait. All questions addressed prior to discharge. ID band removed. Patient advised to follow up with PMD. Rx of [place] and Motrin given. Patient educated on indication of medication including possible reaction and side effects. Opportunity to ask questions provided and answered.
== END 2020-01-27 04:22 | disposition home or self-care (01) ==
LOC: MED 02:20
DX: S92.911A Unspecified fracture of right toe(s), initial encounter for closed fracture (principal); S90.31XA Contusion of right foot, initial encounter; I51.89 Other ill-defined heart diseases; Z90.49 Acquired absence of other specified parts of digestive tract; Z79.899 Other long term (current) drug therapy; W22.8XXA Striking against or struck by other objects, initial encounter; Y93.89 Activity, other specified; Y92.89 Other specified places as the place of occurrence of the external cause; Y99.8 Other external cause status
CPT/HCPCS: 73630; 96372; 99283; J1885; Q0092

== ENCOUNTER 2023-06-22 13:56 | Emergency (ER) | payer MEDICAID ==
[~2023-06-22] VITALS: Ht 170.2 cm; Wt 83.9 kg
[2023-06-22 13:59] VITALS: BP 158/96; PULSE 100; RESP 20; TEMP 99; O2SAT 93
[2023-06-22] MEDS ORDERED: IBUP-2213 PO ×2 (15:02→15:11)
[2023-06-22] MEDS ORDERED: AZIT250T4 PO ×2 (15:02→15:11)
[2023-06-22] MEDS ORDERED: PRED20TA5 PO ×2 (15:02→15:11)
[2023-06-22 16:52] VITALS: BP 158/96; PULSE 100; RESP 20; TEMP 99; O2SAT 93
== END 2023-06-22 14:35 | disposition home or self-care (01) ==
LOC: MED 13:56
DX: J18.9 Pneumonia, unspecified organism (principal); Z79.899 Other long term (current) drug therapy
CPT/HCPCS: 71045; 99283